=== PATIENT | female | born 1940 | race Caucasian/White ===

== ENCOUNTER → 2019-03-04 | Outpatient (CLI) | payer MEDICARE ==
[~2019-03-04] MED LIST: CHOL10002; CIPRSO OS; CONEST.3; HYDACE5 PO; LEVSOD25; MECL25 PO; MULTI VITAMIN1 EACH; OXYACE5T PO; PANT40; PROM25 PO; RXHYDACE PO; Synthroid25 MCG
[2019-03-04 13:47] LABS: Stool Occult Bld Immuno 1 Negative (NEGATIVE); Stool Occult Bld Immuno 2 Negative (NEGATIVE)
== END ==
LOC: LAB SHORT 06:00 → LAB 06:00 → LAB FUT 02-22 09:55
PROVIDERS: Student in an Organized Health Care Education/Training Program
DX: D50.9 Iron deficiency anemia, unspecified (principal)
CPT/HCPCS: 82274

== ENCOUNTER 2020-11-27 10:03 | Day surgery (SDC) | payer OTHER ==
[~2020-11-27] VITALS: Ht 157.5 cm; Wt 56.4 kg
[~2020-11-27 10:03] MED LIST changes: +ALEN70; +Acerola C500 MG; +FLAX; +LIOT5; +MULVITA; +THERA-D2000 UNIT; +TOCO1000; +Vitamin B-121000 MCG
--- NOTE | 2020-11-27 10:52 | NUR ---
11/27/20 1052 Sarah Harris ([place] ONE ATTEMPT BY CORRINE IN RH MISSED SECOND SUCCESSFUL IN LH BY CORRINE PT TOW
== END 2020-11-27 13:08 | disposition home or self-care (01) ==
LOC: ORSCSDS 10:03
PROVIDERS: Surgery
PROC: 0DJD8ZZ Inspection of Lower Intestinal Tract, Via Natural or Artificial Opening Endoscopic (ICD-10-PCS; principal; 2020-11-27 11:30)
DX: Z12.11 Encounter for screening for malignant neoplasm of colon (principal); Z86.010 Personal history of colon polyps; D12.4 Benign neoplasm of descending colon; K57.30 Diverticulosis of large intestine without perforation or abscess without bleeding; K21.9 Gastro-esophageal reflux disease without esophagitis; Z79.899 Other long term (current) drug therapy
CPT/HCPCS: 88305; J2704; J7120

== ENCOUNTER 2021-08-28 07:13 | Day surgery (SDC) | payer OTHER ==
[~2021-08-28] VITALS: Ht 157.5 cm; Wt 60.5 kg
== END 2021-08-28 09:10 | disposition home or self-care (01) ==
LOC: ORSCSDS 07:13
PROVIDERS: Ophthalmology
PROC: 08RJ3JZ Replacement of Right Lens with Synthetic Substitute, Percutaneous Approach (ICD-10-PCS; principal; 2021-08-28 08:30)
DX: H25.11 Age-related nuclear cataract, right eye (principal); E03.9 Hypothyroidism, unspecified; K21.9 Gastro-esophageal reflux disease without esophagitis; Z79.899 Other long term (current) drug therapy
CPT/HCPCS: J2001; J2250; J3010; J3301; J7040; V2632